=== PATIENT | female | born 1980 | race Caucasian/White ===

== ENCOUNTER 2017-02-15 23:39 | Observation (INO) ==
[2017-02-16 00:20] LABS: Bilirubin,Urine Negative (Negative); Blood,Urine Negative (Negative); Clarity,Urine Clear (Clear); Color,Urine Yellow (Yellow); Glucose,Urine (UA) Normal (Normal); Ketones,Urine Negative (Negative); Leukocyte Esterase,Urine Negative (Negative); Nitrite,Urine Negative (Negative); PH,Urine 6.5 pH Units (5.0-8.0); Protein,Urine Negative (Neg-Trace); Specific Gravity,Urine 1.019 (1.010-1.025); Urobilinogen,Urine Normal (Normal)
[2017-02-16 01:20] LABS: Basophils # 0.1 K/mcL (0.0-0.2); Eosinophils # 0.1 K/mcL (0.0-0.6); Eosinophils % 0.8 %; Hemoglobin 13.8 g/dL (11.5-15.4); Immature Granulocytes % 0.4 % (0-4); Lymphocytes # 2.1 K/mcL (0.6-4.6); Lymphocytes % 16.1 %; Mean Corpuscular HGB Conc 32.9 g/dL (31.6-35.5); Mean Corpuscular Hemoglobin 28.6 pg (28.0-33.3); Mean Platelet Volume 10.1 fL (9.4-12.4); Monocytes % 7.5 %; Neutrophils # 9.9 K/mcL (1.6-8.9); Platelet Count 569 K/mcL (140-400); Red Blood Count 4.83 M/mcL (3.82-4.97); Red Cell Distribution Width 13.7 % (11.5-14.5); Segmented Neutrophils % 74.2 %
[2017-02-16 01:27] LABS: BUN/Creatinine Ratio 17 (6-26); Blood Urea Nitrogen 12 mg/dL (7-20); Calcium 9.9 mg/dL (8.6-10.8); Carbon Dioxide 23 mEq/L (19-29); Chloride 105 mEq/L (98-109); Glucose 106 mg/dL (70-99); Osmolality,Calculated 290 (280-300); Sodium 140 mEq/L (136-145); eGFR For African Americans > 60 (> 60); eGFR For Non-African Americans > 60 (> 60)
[2017-02-16 01:50] LABS: Thyroid Stimulating Hormone 5.025 mcIU/mL (0.350-4.840)
--- NOTE | 2017-02-16 01:58 | Emergency Department Note ---
Disposition Clinical Impression: Dehydration symptoms, Palpitations Disposition: Admitted As Inpatient Time of Disposition: 18:39 Arrhythmia/Palpitations HPI - General Chief Complaint: ED Arrhythmia/Palpitations Stated Complaint: increased heart rate Time Seen by Provider: 02/16/17 01:34 Source: patient Limitations: no limitations Nursing Notes Reviewed: Yes Vital Signs Reviewed: Yes - History of Present Illness HPI Narrative: 36-year-old nontoxic-appearing female presents to the emergency department for chief complaint of "it felt like my heart was racing out of my chest". The patient states that just prior to arrival, she was awoken with these symptoms. She states that it felt like "my heart was just going to pound out of my chest" . She states that she was slightly short of breath along with this. She denies any overt chest pain or pressure. She denies any nausea or vomiting, however admits to breaking out in a sweat during this episode. She does complain of a persistent headache that she has had for the past several days. Her headache is located to the left occipital region. She states that, although her headache is different from her usual migraines, it is not the worst headache of her life. She also states a slow and insidious onset to her headache. She denies any abdominal pain, however states "it is almost like I can see my heart beating in my belly". she denies any fevers, chills, or diarrhea. Pt Subjective Complaint: "heart racing" Onset (ago): Just [employer] Context: occurred during rest, awoke with symptoms Associated symptoms: Reports: shortness of breath, anxiety, diaphoresis. Denies : chest pain, nausea, vomiting, cough - Related Data Home Medications Medication Instructions Recorded Confirmed No Known Home Drugs 02/16/17 02/16/17 Allergies Allergy/AdvReac Type Severity Reaction Status Date / Time codeine AdvReac Hives Verified 09/17/16 08:45 doxycycline AdvReac Hives Verified 09/17/16 08:45 hydrocodone [From Vicodin] AdvReac Palpitation Verified 09/17/16 08:45 s Hydromorphone [From Dilaudid] AdvReac Hives Verified 09/17/16 08:45 ketorolac [From Toradol] AdvReac Palpitation Verified 09/17/16 08:45 s morphine AdvReac Hives Verified 09/17/16 08:45 Penicillins AdvReac Hives Verified 09/17/16 08:45 sulfamethoxazole AdvReac Hives Verified 09/17/16 08:45 [From Bactrim] trimethoprim [From Bactrim] AdvReac Hives Verified 09/17/16 08:45 ivp dye AdvReac Hives Uncoded 09/17/16 08:45 All systems ED: reviewed and negative except as stated. Constitutional: Reports: as per HPI, other (Diaphoresis). Denies: fever, chills , weakness, weight change Eyes: Denies: eye pain, eye discharge, vision change ENT ED: Denies: ear pain, throat pain, dental pain, hearing loss, epistaxis, congestion, dysphagia Cardiovascular: Reports: as per HPI, palpitations. Denies: chest pain, dyspnea on exertion, edema, syncope Respiratory: Reports: as per HPI, dyspnea. Denies: cough, wheezes, hemoptysis, stridor Gastrointestinal: Denies: abdominal pain, nausea, vomiting, diarrhea, constipation, hematemesis, melena, hematochezia Genitourinary: Denies: dysuria, frequency, hematuria, discharge Musculoskeletal: Denies: back pain, neck pain, arthralgia, myalgia Integumentary: Denies: rash, abrasion, lesions Neurological: Denies: headache, weakness, numbness, paresthesias, confusion, abnormal gait, vertigo Psychiatric: Denies: anxiety, depression, suicidal thoughts, homicidal thoughts , auditory hallucinations, visual hallucinations Endocrine: Denies: fatigue Hematological/Lymphatic: Denies: easy bleeding, easy bruising Allergic/Immunologic: Denies: facial swelling, urticaria Past Medical History - Past Medical History Attestation: Yes The following information was validated with the patient. Source: patient Medical history: Reports: asthma Surgical history: Reports: appendectomy, cholecystectomy, splenectomy, other ( Splenic artery aneurysm) Psychiatric history: Reports: anxiety POKER DEALER history: Reports: no POKER DEALER history - Social History Smoking Status: Never smoker Smokeless Tobacco Status: No Alcohol use: Reports: none Drug use: Reports: none Physical Exam - General Limitations: no limitations General appearance: alert - Head Head exam: atraumatic, normocephalic, normal inspection - Eye Eye exam: Present: normal appearance, PERRL, EOMI - ENT ENT exam: mucous membranes dry - Neck Neck exam: Present: normal inspection, full ROM, trachea midline - Chest Chest inspection: Present: normal inspection, symmetric chest wall rise - Respiratory Respiratory exam: Present: normal lung sounds bilaterally. Absent: respiratory distress, wheezes, stridor, accessory muscle use, prolonged expiratory phase - Cardiovascular Cardiovascular exam: Present: normal rhythm, tachycardia, normal heart sounds - Abdominal Exam Abdominal exam: Present: soft, Non-Tender, normal bowel sounds. Absent: tenderness, distention, guarding, rebound, rigidity, mass, bruit, pulsatile mass - Extremities Exam Extremities exam: Present: normal inspection, full ROM. Absent: tenderness, pedal edema - Neurological Exam Neurological exam: Present: alert, oriented X3 - Psychiatric Psychiatric exam: Present: normal affect, normal mood - Skin Skin exam: Present: warm, dry, intact, normal color Course Course Narrative: I have discussed this patient's case with Dr. Kaelyn Pabon. Dr. Kaelyn Pabon has had a [id number] evaluation with the patient and has reviewed her laboratory/EKG/radiology results. Dr. Kaelyn Pabon agrees with a disposition diagnosis of dehydration pending negative repeat troponin. Plan to have the patient follow up with her primary care provider. 0510: I was notified by Dr. Kaelyn Pabon that the patient had a repeat episode of symptoms that brought her in earlier this morning. She states she entered the room to find the patient sitting upright in bed hyperventilating stating that her heart rate again climbed into the mid 130s. She states she was short of breath with this brief and transient episode. I reviewed the monitor myself and found the patient did in fact have a brief elevation in heart rate to the mid 130s. At this time, Dr. Kaelyn Pabon has suggested admission to the hospitalist service for further evaluation of her palpitations. I have discussed this plan with the patient and the patient is in agreement. 0615: I discussed the patient's case with Dr. Gill who has accepted the patient for admission to the hospitalist service. - Reevaluation(s) Reevaluation #1: The patient's heart rate has slowed to 97 bpm after the administration of 1 L of IV fluid. At this time, CT of the head is pending. I discussed with patient that we will obtain a 3 hour repeat troponin prior to disposition. The patient verbalizes an understanding of this and is in agreement. Time: 03:54 Vital Signs Temperature 98.5 F 02/15/17 23:44 Pulse Rate 133 02/15/17 23:44 Respiratory Rate 18 02/15/17 23:44 Blood Pressure 139/81 02/15/17 23:44 O2 Sat by Pulse Oximetry 98 02/15/17 23:44 Temperature 98.3 F 02/16/17 15:00 Pulse Rate 80 02/16/17 15:00 Respiratory Rate 20 02/16/17 15:00 Blood Pressure 123/78 02/16/17 15:00 O2 Sat by Pulse Oximetry 96 02/16/17 15:00 Oxygen Delivery Oxygen Delivery Room Air Arrhythmia/Palpitations - Medical Records Medical records reviewed: Yes I reviewed the patient's medical records. - Lab Data Lab results reviewed: Yes I reviewed the patient's lab results. Result diagrams: 02/16/17 10:59 02/16/17 01:05 Lab Results 02/16/17 02/16/17 02/16/17 Range/Units 00:05 00:05 01:05 WBC 13.3 H (4.3-11.1) K/mcL RBC 4.83 (3.82-4.97) M/mcL Hgb 13.8 (11.5-15.4) g/dL Hct 42.0 (35.3-44.9) % MCV 87.0 (83.0-100.0) fL MCH 28.6 (28.0-33.3) pg MCHC 32.9 (31.6-35.5) g/dL RDW 13.7 (11.5-14.5) % Plt Count 569 H (140-400) K/mcL MPV 10.1 (9.4-12.4) fL Immature Gran % 0.4 (0-4) % Seg Neutrophils % 74.2 % Lymphocytes % 16.1 % Monocytes % 7.5 % Eosinophils % 0.8 % Basophils % 1.0 % Neutrophils # 9.9 H (1.6-8.9) K/mcL Lymphocytes # 2.1 (0.6-4.6) K/mcL Monocytes # 1.0 (0.0-1.3) K/mcL Eosinophils # 0.1 (0.0-0.6) K/mcL Basophils # 0.1 (0.0-0.2) K/mcL Sodium (136-145) mEq/L Potassium (3.5-4.5) mEq/L Chloride (98-109) mEq/L Carbon Dioxide (19-29) mEq/L BUN (7-20) mg/dL Creatinine (0.57-1.11) mg/dL Est GFR ( Amer) (> 60) Est GFR (Non-Af Amer) (> 60) BUN/Creatinine Ratio (6-26) Glucose (70-99) mg/dL Calculated Osmolality (280-300) Calcium (8.6-10.8) mg/dL Troponin I (0-0.03) ng/mL TSH (0.350-4.840) mcIU/mL Urine Color Yellow (Yellow) Urine Clarity Clear (Clear) Urine pH 6.5 (5.0-8.0) pH Units Ur Specific Lancing 1.019 (1.010-1.025) Urine Protein Negative (Neg-Trace) mg/dL Urine Glucose (UA) Normal (Normal) mg/dL Urine Ketones Negative (Negative) mg/dL Urine Blood Negative (Negative) Urine Nitrite Negative (Negative) Urine Bilirubin Negative (Negative) Urine Urobilinogen Normal (Normal) mg/dL Ur Leukocyte Esterase Negative (Negative) Ur Culture Indicated? NO (NO) Urine Test Negative (Negative) 02/16/17 02/16/17 02/16/17 Range/Units 01:05 01:54 04:40 WBC (4.3-11.1) K/mcL RBC (3.82-4.97) M/mcL Hgb (11.5-15.4) g/dL Hct (35.3-44.9) % MCV (83.0-100.0) fL MCH (28.0-33.3) pg MCHC (31.6-35.5) g/dL RDW (11.5-14.5) % Plt Count (140-400) K/mcL MPV (9.4-12.4) fL Immature Gran % (0-4) % Seg Neutrophils % % Lymphocytes % % Monocytes % % Eosinophils % % Basophils % % Neutrophils # (1.6-8.9) K/mcL Lymphocytes # (0.6-4.6) K/mcL Monocytes # (0.0-1.3) K/mcL Eosinophils # (0.0-0.6) K/mcL Basophils # (0.0-0.2) K/mcL Sodium 140 (136-145) mEq/L Potassium 4.0 (3.5-4.5) mEq/L Chloride 105 (98-109) mEq/L Carbon Dioxide 23 (19-29) mEq/L BUN 12 (7-20) mg/dL Creatinine 0.72 (0.57-1.11) mg/dL Est GFR ( Amer) > 60 (> 60) Est GFR (Non-Af Amer) > 60 (> 60) BUN/Creatinine Ratio 17 (6-26) Glucose 106 H (70-99) mg/dL Calculated Osmolality 290 (280-300) Calcium 9.9 (8.6-10.8) mg/dL Troponin I 0.00 0.00 (0-0.03) ng/mL TSH 5.025 H (0.350-4.840) mcIU/mL Urine Color (Yellow) Urine Clarity (Clear) Urine pH (5.0-8.0) pH Units Ur Specific Lancing (1.010-1.025) Urine Protein (Neg-Trace) mg/dL Urine Glucose (UA) (Normal) mg/dL Urine Ketones (Negative) mg/dL Urine Blood (Negative) Urine Nitrite (Negative) Urine Bilirubin (Negative) Urine Urobilinogen (Normal) mg/dL Ur Leukocyte Esterase (Negative) Ur Culture Indicated? (NO) Urine Test (Negative) - Radiology Data Radiology results reviewed: Yes I reviewed the patient's radiology results.
[2017-02-16] MEDS: 0.9 % Sodium Chloride 1,000 ML IVC ONE ×2 (02:41→03:51)
[2017-02-16] MEDS ORDERED: Ibuprofen 600 MG TABLET PO ONE (02:52)
[2017-02-16] MEDS ORDERED: 0.9 % Sodium Chloride 1,000 ML ONE (03:40)
[2017-02-16] MEDS ORDERED: 0.9 % Sodium Chloride 1,000 ML IVC ONE (06:49)
[2017-02-16] MEDS ORDERED: Ondansetron 4 MG/2 ML VIAL IVP PRN (10:11)
[2017-02-16 11:06] LABS: Basophils # 0.1 K/mcL (0.0-0.2); Basophils % 0.8 %; Eosinophils # 0.1 K/mcL (0.0-0.6); Eosinophils % 0.6 %; Hematocrit 39.6 % (35.3-44.9); Hemoglobin 13.1 g/dL (11.5-15.4); Immature Granulocytes % 0.3 % (0-4); Lymphocytes # 4.1 K/mcL (0.6-4.6); Lymphocytes % 37.7 %; Mean Corpuscular HGB Conc 33.1 g/dL (31.6-35.5); Mean Corpuscular Hemoglobin 28.9 pg (28.0-33.3); Mean Corpuscular Volume 87.4 fL (83.0-100.0); Mean Platelet Volume 10.1 fL (9.4-12.4); Monocytes # 0.6 K/mcL (0.0-1.3); Monocytes % 5.6 %; Platelet Count 533 K/mcL (140-400); Red Blood Count 4.53 M/mcL (3.82-4.97); Red Cell Distribution Width 13.9 % (11.5-14.5)
--- NOTE | 2017-02-16 11:06 | Internal Med History&Physical ---
Date of Encounter: 02/16/17 Time of Encounter: 10:30 Assessment and Plan (1) Tachycardia Current visit: Yes Status: Acute Patient with sinus tachycardia in the setting of leukocytosis and thrombocytosis Her EKGs show sinus tachycardia telemetry shows same I suspect patient may be having panic attacks Continue tele monitoring for now Obtain ECHO Monitor closely (2) Headache Current visit: Yes Status: Acute patient with tension type headaches She reports history of same in the past It is likely her headaches are due to her reactive thrombocytosis and dehydration Continue IVF hydration Head CT shows no abnormalities patient is very anxious and requesting a CTA to assess for an intracranial aneurysm as a cause of her headaches and or tachycardia She has SOB and hives with contrast administration At this time, I have explained to her there is currently no indication for CTangio of the brain Continue tylenol/motrin No neurologic deficits on exam Monitor closely Qualifiers: Headache type: tension-type Headache chronicity pattern: unspecified pattern Intractability: not intractable Qualified Code(s): G44.209 - Tension -type headache, unspecified, not intractable (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 Kelley is a 36 year old female who presented with palpitations She reports being in her usual state of health till last night when she woke up suddenly with palpitations. she presented to the ER because she also felt shortness of breath at that time She denies chest pain, dizziness, excess caffeine use, illicit drug use, prior episodes. She reports feeling "very afraid and anxious" because she has had a She has been having headaches for the past 4 days , said to have been initially temporal, then occiptal, described as like a band and just annoying . She states it feels like a hangover even though she has not had an alcoholic drink for several days. She denies photophobia, fever, blurring of vision, no severe headaches, she has a self-diagnosed history of migraine headaches. She denies prior heart disease, she has no orthopnea, PND, she has no leg swelling Evaluation in the ER reports patient was tachcyardic up to 150s, resolved with IVF hydration, then she had one more episode of ~130. She was found to be hyperventilating. She reports having anxiety in the past necessitating use of lexapro and celexa which she did not tolerate. She declines seeing a psychiatrist here and opted to follow up with her PCP She has had splenic artery aneurysm and splenectomy in the past and has been told of need to take ASA but she is non-compliant. She denies any other symptoms at this time Work up revealed leukocytosis, thrombocytosis, azotemia, slightly elevated glucose, TSH is elevated. UA is clean EKG reviewed: Showed sinus tachycardia. Troponin is negative CXR and Head CT is unremarkable Past Med Surg Social Fam HX - Past Medical History Medical history: asthma Psychiatric history: anxiety - Past Surgical History Surgical History: appendectomy, cholecystectomy, splenectomy, other - Social History Smoking Status: Never smoker Smokeless Tobacco Status: No Alcohol use: none Drug use: none Internal Medicine - H&P: Meds No Known Home Drugs 02/16/17 [History] Allergies codeine Adverse Reaction (Verified 09/17/16 08:45) Hives doxycycline Adverse Reaction (Verified 09/17/16 08:45) Hives hydrocodone [From Vicodin] Adverse Reaction (Verified 09/17/16 08:45) Palpitations Hydromorphone [From Dilaudid] Adverse Reaction (Verified 09/17/16 08:45) Hives ketorolac [From Toradol] Adverse Reaction (Verified 09/17/16 08:45) Palpitations morphine Adverse Reaction (Verified 09/17/16 08:45) Hives Penicillins Adverse Reaction (Verified 09/17/16 08:45) Hives sulfamethoxazole [From Bactrim] Adverse Reaction (Verified 09/17/16 08:45) Hives trimethoprim [From Bactrim] Adverse Reaction (Verified 09/17/16 08:45) Hives ivp dye Adverse Reaction (Uncoded 09/17/16 08:45) Hives All Systems PM: A 10-system review of systems was performed and is negative for pertinent findings except as documented above in the HPI. - Constitutional Constitutional: as per HPI - EENT Eyes: as per HPI Ears: as per HPI Nose, mouth and throat: as per HPI - Breasts Breasts: as per HPI - Cardiovascular Cardiovascular ROS IM: as per HPI - Respiratory Respiratory: as per HPI - Gastrointestinal Gastrointestinal: as per HPI - Genitourinary Genitourinary: as per HPI Menstruation: as per HPI - Musculoskeletal Musculoskeletal ROS IM: as per HPI - Integumentary Integumentary IM: as per HPI - Neurological Neurological ROS: as per HPI - Constitutional Vitals: Temp Pulse Resp BP Pulse Ox 98.3 F 80 16 122/68 100 02/16/17 07:03 02/16/17 10:48 02/16/17 10:48 02/16/17 10:48 02/16/17 10:48 General appearance: Present: A&O X 3, pleasant, no acute distress, obese - Head Head exam: Present: atraumatic, normocephalic - Eye Eye exam: Present: PERRL, conjuntiva pink, sclera anicteric Pupils: Present: PERRL - Neck Neck exam general surgery: Present: supple, trachea midline. Absent: lymphadenopathy - Respiratory Respiratory exam: Present: CTAB. Absent: accessory muscle use, rales, rhonchi, wheezes - Cardiovascular Cardiovascular exam: Present: RRR, +S1, +S2. Absent: diastolic murmur, gallop, rubs, systolic murmur - GI/Abdominal GI/Abdominal exam: Present: normal bowel sounds, soft, no peritoneal signs. Absent: distended, tenderness - Extremities Exam Extremities exam: Present: warm, radial pulses palpable and symetrical. Absent : calf tenderness, cyanotic, pedal edema - Neurological Exam Neurological exam: Present: alert, CN II-XII intact, oriented X3, no focal deficits. Absent: pronater drift, facial droop, speech deficit - Skin Skin exam: Present: dry, intact Internal Med - H&P Results - Labs CBC & Chem 7: 02/16/17 10:59 02/16/17 01:05
[2017-02-16] MEDS: Ibuprofen 400 MG TABLET PO PRN ×2 (11:58→20:24)
[2017-02-16] MEDS: 0.9 % Sodium Chloride 1,000 ML IVC SCH ×2 (12:00→20:24)
[2017-02-16 16:03] LABS: Amphetamine Screen,Urine Negative ng/mL (Cutoff=1000); Barbiturate Screen,Urine Negative ng/mL (Cutoff=200); Benzodiazepines Screen,Urine Negative ng/mL (Cutoff=200); Cannabinoid Screen,Urine Negative ng/mL (Cutoff = 50); Cocaine Screen,Urine Negative ng/mL (Cutoff= 300); Opiate Screen,Urine Negative ng/mL (Cutoff=300); Phencyclidine Screen,Urine Negative ng/mL (Cutoff=25)
[2017-02-16] MEDS: Acetaminophen 325 MG TABLET PO PRN ×2 (17:36→23:54)
[2017-02-17] MEDS ORDERED: *HR* LORazepam 2 MG/ML VIAL IVP ONE (02:42)
--- NOTE | 2017-02-17 06:36 | Electrocardiograph Report ---
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
[2017-02-17 07:14] LABS: Basophils # 0.1 K/mcL (0.0-0.2); Eosinophils # 0.1 K/mcL (0.0-0.6); Hematocrit 36.3 % (35.3-44.9); Hemoglobin 11.9 g/dL (11.5-15.4); Immature Granulocytes % 0.5 % (0-4); Lymphocytes % 43.8 %; Mean Corpuscular HGB Conc 32.8 g/dL (31.6-35.5); Mean Corpuscular Hemoglobin 29.1 pg (28.0-33.3); Mean Corpuscular Volume 88.8 fL (83.0-100.0); Mean Platelet Volume 10.9 fL (9.4-12.4); Monocytes # 0.5 K/mcL (0.0-1.3); Monocytes % 5.7 %; Neutrophils # 4.4 K/mcL (1.6-8.9); Platelet Count 489 K/mcL (140-400); Red Blood Count 4.09 M/mcL (3.82-4.97); Red Cell Distribution Width 14.1 % (11.5-14.5)
[2017-02-17] MEDS: 0.9 % Sodium Chloride 1,000 ML IVC SCH (07:56)
[2017-02-17] MEDS: Acetaminophen 325 MG TABLET PO PRN (08:04)
[2017-02-17] MEDS ORDERED: Aspirin Enteric Coated 81 MG Tablet PO SCH (09:00)
[2017-02-17 09:27] VITALS: BP 132/64
--- NOTE | 2017-02-17 09:36 | ECHO - Doppler Report ---
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 Normal left ventricular size and systolic function. Normal right ventricular size and function. Mild mitral regurgitation. No pulmonary hypertension. There is no evidence of a PFO with agitated saline contrast. Left Ventricular Wall Motion: Rest Echo Findings All wall segments showed normal motion. Findings: Study Quality * Technically adequate exam. ECG Findings * Normal sinus rhythm and periods of sinus tachycardia. Left Ventricle * Normal LV chamber size, wall thickness and function. * Pseudonormal LV diastolic function. * LVEF 65%. Mitral Valve * Normal mitral valve structure. * No mitral stenosis. * Mild mitral regurgitation. Aorta * Normally sized aortic root. Aortic Valve * No aortic regurgitation. * Normal aortic valve structure. * No aortic stenosis. * Trileaflet aortic valve. Tricuspid Valve * Tricuspid valve not well visualized. * Trace tricuspid regurgitation. * Estimated RA pressure is 3 mmHg. * Estimated RVSP is 24 mmHg. * No pulmonary hypertension. Pulmonic Valve * Pulmonic valve is not well visualized. * No pulmonic stenosis. * No pulmonic regurgitation. Pulmonary Artery * Pulmonary artery not well visualized. Right Ventricle * Normal right ventricular structure and function. Right Atrium * Normal right atrial size. Left Atrium * Mildly dilated left atrium. Pericardium * There is no pericardial effusion present. Interatrial Septum * * No evidence of PFO with agitated saline contrast. IVC * Normal IVC dimensions and inspiratory collapse. History Hypercholesteremia Family History of CAD 10/08/2015 a Previous Echo was performed. Contrast: Agitated saline 30 ml. Measurements: BP: 123/ 78 2D Normal Values RVIDd: 2.90 cm <2.7 cm IVSd: 1.20 cm 0.6 - 1.0 cm LVIDd: 4.90 cm 3.7 - 5.6 cm LVPWd: 1.20 cm 0.6 - 1.1 cm LVIDs: 3.10 cm 1.5 - 3.6 cm AO: 2.40 cm < 4.0 cm LA: 4.00 cm 2.0 - 4.0cm %FS: 36.70 cm >25 % LA volume: 66 Mitral Valve Peak E:.87 m/sec Peak A:.82 m/sec E/A Ratio:1.1 Peak E' Lat Leonidas:14.4 cm/s Peak E' Med Leonidas:13.1 cm/s E/E' Lat Ratio:6 E/E' Med Ratio:6.6 Tricuspid Valve TV Regurg Peak Grad: 21.00mmHg TV Regurg Peak Leonidas: 2.28m/sec Updated by Juana Rodriguez on 02/17/2017 9:26:57 AM electronically signed on 02/17/2017 9:32:07 AM with status of Final Wall Motion Aranda: 1=Normal, 2=Hypokinesis, 3=Akinesis, 4=Dyskinesis, 5=Aneurysmal, 6=Hyperkinetic, X=Not Visualized (Blank)=Missing
--- NOTE | 2017-02-17 09:44 | Discharge Summary ---
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 (4) Obesity (BMI 30.0-34.9) Priority: Secondary Status: Chronic - Discharge Medications Prescriptions: Aspirin 81 mg PO DAILY #30 tab.chew LORazepam [Ativan] 0.5 mg PO BID PRN #20 tablet PRN Reason: Anxiety Home Medications: Aspirin 81 mg PO DAILY #30 tab.chew 02/17/17 [Rx] LORazepam [Ativan] 0.5 mg PO BID PRN #20 tablet 02/17/17 [Rx] Allergies/Adverse Reactions: Allergies codeine Adverse Reaction (Verified 09/17/16 08:45) Hives doxycycline Adverse Reaction (Verified 09/17/16 08:45) Hives hydrocodone [From Vicodin] Adverse Reaction (Verified 09/17/16 08:45) Palpitations Hydromorphone [From Dilaudid] Adverse Reaction (Verified 09/17/16 08:45) Hives ketorolac [From Toradol] Adverse Reaction (Verified 09/17/16 08:45) Palpitations morphine Adverse Reaction (Verified 09/17/16 08:45) Hives Penicillins Adverse Reaction (Verified 09/17/16 08:45) Hives sulfamethoxazole [From Bactrim] Adverse Reaction (Verified 09/17/16 08:45) Hives trimethoprim [From Bactrim] Adverse Reaction (Verified 09/17/16 08:45) Hives ivp dye Adverse Reaction (Uncoded 09/17/16 08:45) Hives Procedures/tests Complete & Pending: Procedures Performed prior 72 hours Category Date Time Status EV echocardiogram Stat Y 02/16/17 10:14 Completed Date of admission: 02/16/17 06:36 Primary care physician: yLnn Gan Consults: 02/16/17 12:17 Consult to Oncology [CONS] Routine Consulting Provider: [facility] Reason for Consult: Thrombocytosis following splenectomy Call Completed: No Discharging clinician: Annabel Navarrete Anticipated date of discharge: 02/17/17 - Patient Status Disposition: Home, Self-Care Condition: Good Functional capacity at discharge: independent ambulation Overall status at discharge: patient is back to baseline - Discharge Instructions Follow Up With: Lynn Gan MD [Primary Care Provider] - Additional Instructions: Please follow up with your primary care physician within five days after your discharge from the hospital. Aspirin 81mg once daily has been added to your home medications due to your elevated platelet counts, please inform your primary care physician of this change. Lorazepam 0.5mg orally twice a day as needed for anxiety has been added to your home medications. Please ask your primary care physician about a long-term regimen for your severe chronic anxiety as benzodiazepines are highly addictive and are not the first line for long-term management. Please resume all your other home medications as prescribed by your primary care physician. - Diet and Activity Activity: resume usual activities as tolerated Diet: advance to your usual diet Hospital course: Ms. Kelley is a 36 year old female with PMH of anxiety, asthma, splenic artery aneurysm, s/p splenectomy who was admitted for evaluation of tachycardia and headache. Patient had CT head and 2D echo which rule out any intracranial and cardiac pathology. Her acute symptoms were all anxiety driven were likely secondary to a panic attack. She responded well to IV lorazepam and reported of having long-term anxiety for which she wants to seek medical help for. She was also noted to have thrombocytosis and was started on Aspirin 81mg qd.At this time she is hemodynamically stable and reports of feeling significantly better with the IV lorazepam. she requests continuation of this medication until her follow up with her PCP. Detail discussion was held and patient was explained all the risks associated with chronic benzodiazepine therapy. Patient demonstrates understanding and acknowledges the risks associated with this therapy. At this time she is stable and will be discharged to home with follow up with PCP. She demonstrates understanding of her diagnosis and agrees with the discharge plan. - Time Spent with Patient Total time spent providing and/or coordinating discharge services: Greater than 30 minutes - Constitutional Vitals: Temp Pulse Resp BP Pulse Ox 98.3 F 86 20 132/64 100 02/17/17 08:00 02/17/17 08:00 02/17/17 08:00 02/17/17 08:00 02/17/17 08:00 General appearance: Present: A&O X 3, pleasant, no acute distress, obese - Head Head exam: Present: atraumatic, normocephalic - Eye Eye exam: Present: normal appearance, PERRL, conjuntiva pink, sclera anicteric - Respiratory Respiratory exam: Present: CTAB. Absent: accessory muscle use, rales, rhonchi, wheezes - Cardiovascular Cardiovascular exam: Present: RRR, +S1, +S2. Absent: diastolic murmur, gallop, rubs, systolic murmur - GI/Abdominal GI/Abdominal exam: Present: normal bowel sounds, soft, no peritoneal signs. Absent: distended, tenderness - Extremities Exam Extremities exam: Present: warm, radial pulses palpable and symetrical. Absent : calf tenderness, cyanotic, pedal edema - Neurological Exam Neurological exam: Present: alert, CN II-XII intact, oriented X3, no focal deficits, strengths equal and symetr throughout. Absent: pronater drift, facial droop, speech deficit - Psychiatric Psychiatric exam: Present: normal affect, normal mood
[2017-02-17 10:48] LABS: BUN/Creatinine Ratio 11 (6-26); Blood Urea Nitrogen 6 mg/dL (7-20); Calcium 8.5 mg/dL (8.6-10.8); Carbon Dioxide 19 mEq/L (19-29); Chloride 111 mEq/L (98-109); Glucose 97 mg/dL (70-99); Osmolality,Calculated 286 (280-300); Sodium 139 mEq/L (136-145); eGFR For African Americans > 60 (> 60); eGFR For Non-African Americans > 60 (> 60)
== END 2017-02-17 11:39 | disposition home or self-care (01) ==
LOC: ICNU 23:39 → EMEROO 23:39 → ICNU 02-16 06:50
PROVIDERS: ADMIT Internal Medicine; ATTEND Internal Medicine